=== PATIENT | female | born 1985 | race American Indian/Alaskan Native ===

== ENCOUNTER 2016-08-14 12:00 | Emergency (ER) | payer SELFPAY ==
[2016-08-14 12:44] VITALS: BP 130/82
--- NOTE | 2016-08-14 14:08 | Emergency Department Report ---
ED ENT HPI - General Chief complaint: Dental/Oral Stated complaint: RT SIDE FACIAL PAIN /SEVERE TOOTH PAIN Time Seen by Provider: 08/14/16 13:37 Source: patient Mode of arrival: Ambulatory Limitations: No Limitations - History of Present Illness Initial comments: PT c/o R lower toothache since eating yesterday. PT denies any dental injury. PT states it has been 10 years since she has seen a dentist. PT states she is allergic to Ultram but she has taken Tylenol #3 and Lortab without a problem. PT states she took Motrin this morning for the pain but her pain has not decreased. pt rates her pain 12/24. MD complaint: tooth pain -: Gradual Location: tooth # (32) 1 - severe pain Severity: severe Severity scale (0 -10): 10 Quality: sharp Consistency: constant Improves with: none Worsens with: eating Context- Dental: history of dental caries, poor dental care Associated Symptoms: denies: fever, pain with swallowing, sore throat - Related Data Previous Rx's Medication Instructions Recorded Last Taken Type Acetaminophen/Codeine [Tylenol #3] 1 tab PO Q6H PRN #12 tab 08/14/16 Unknown Rx Amoxicillin 500 mg PO BID #20 capsule 08/14/16 Unknown Rx Allergies Allergy/AdvReac Type Severity Reaction Status Date / Time tramadol Allergy Angioedema Verified 02/06/15 17:40 ED Dental HPI - General Chief complaint: Dental/Oral Stated complaint: RT SIDE FACIAL PAIN /SEVERE TOOTH PAIN Time Seen by Provider: 08/14/16 13:37 Source: patient Mode of arrival: Ambulatory Limitations: No Limitations - Related Data Previous Rx's Medication Instructions Recorded Last Taken Type Acetaminophen/Codeine [Tylenol #3] 1 tab PO Q6H PRN #12 tab 08/14/16 Unknown Rx Amoxicillin 500 mg PO BID #20 capsule 08/14/16 Unknown Rx Allergies Allergy/AdvReac Type Severity Reaction Status Date / Time tramadol Allergy Angioedema Verified 02/06/15 17:40 ED Review of Systems ROS: Stated complaint: RT SIDE FACIAL PAIN /SEVERE TOOTH PAIN Other details as noted in HPI Comment: All other systems reviewed and negative Constitutional: denies: chills, fever ENT: ear pain, dental pain. denies: throat pain, congestion Gastrointestinal: denies: abdominal pain, nausea, vomiting Neurological: headache (only the R side of her head ) ED Past Medical Hx - Past Medical History Previous Medical History?: No Additional medical history: Bronchitis - Surgical History Past Surgical History?: Yes Additional Surgical History: Abscess removal Right neck - Social History Smoking Status: Current Every Day Smoker Substance Use Type: None - Medications Home Medications: Home Medications Medication Instructions Recorded Confirmed Last Taken Type Acetaminophen/Codeine [Tylenol #3] 1 tab PO Q6H PRN #12 tab 08/14/16 Unknown Rx Amoxicillin 500 mg PO BID #20 capsule 08/14/16 Unknown Rx ED Physical Exam - General Limitations: No Limitations General appearance: alert, in no apparent distress - Head Head exam: Present: atraumatic, normocephalic, normal inspection - Eye Eye exam: Present: normal appearance, PERRL, EOMI. Absent: conjunctival injection - ENT ENT exam: Present: normal orophraynx, mucous membranes moist, TM's normal bilaterally, normal external ear exam - Expanded ENT Exam Expanded Mouth exam: Absent: drooling, trismus Teeth exam: Present: dental caries, dental tenderness # (32 and 31) Throat exam: Positive: normal inspection. Negative: tonsillar erythema, tonsillomegaly, tonsillar exudate - Neck Neck exam: Present: normal inspection, tenderness, full ROM, lymphadenopathy - Respiratory Respiratory exam: Present: normal lung sounds bilaterally. Absent: respiratory distress - Cardiovascular Cardiovascular Exam: Present: regular rate, normal rhythm - Extremities Exam Extremities exam: Present: normal inspection, full ROM - Back Exam Back exam: Present: normal inspection, full ROM - Neurological Exam Neurological exam: Present: alert, oriented X3 - Psychiatric Psychiatric exam: Present: normal affect, normal mood - Skin Skin exam: Present: warm, dry, intact, normal color ED Course Vital Signs 08/14/16 08/14/16 12:40 14:23 Temperature 98.3 F Pulse Rate 63 Respiratory 18 16 Rate Blood Pressure 130/82 O2 Sat by Pulse 100 Oximetry - Reevaluation(s) Reevaluation #1: 08/14/16 14:09 PT aware of dx and need for close dental follow up. PT verbalizes understanding. - Pulse Oximetry Interpretation Digit-Finger Initial Pulse Oximetry Readin Actions Taken: none ED Medical Decision Making - Differential Diagnosis toothache, dental abscess Critical care attestation.: If time is entered above; I have spent that time in minutes in the direct care of this critically ill patient, excluding procedure time. ED Disposition Clinical Impression: Toothache, Dental decay Disposition: DISCHARGED TO HOME OR SELFCARE Is pt being admited?: No Does the pt Need Aspirin: No Condition: Stable Instructions: Dental Abscess (ED), Dental Caries (ED), Toothache (ED) Additional Instructions: No driving or ETOH after taking Tylenol #3 Follow up with Dentist next week Prescriptions: Acetaminophen/Codeine [Tylenol #3] 1 tab PO Q6H PRN #12 tab PRN Reason: Pain , Severe (7-10) Amoxicillin 500 mg PO BID #20 capsule Referrals: PRIMARY CARE, [Primary Care Provider] - 3-5 Days CHRISTY CANO MD [Staff Physician] - 3-5 Days [facility] [Outside] - 3-5 Days [facility] [Outside] - 3-5 Days [facility] [Outside] - 3-5 Days Forms: Work/School Release Form(ED) Time of Disposition: 14:12
[2016-08-14] MEDS ORDERED: TRIMOX PO ONE (14:10)
[2016-08-14] MEDS ORDERED: NORCO 5/325 PO ONE (14:10)
== END 2016-08-14 14:23 | disposition home or self-care (01) ==
LOC: ED 12:00
DX: K02.9 Dental caries, unspecified (principal); K08.89 Other specified disorders of teeth and supporting structures; Z88.6 Allergy status to analgesic agent
CPT/HCPCS: 99282

== ENCOUNTER 2017-08-04 04:10 | Emergency (ER) | payer SELFPAY ==
[2017-08-04 04:23] VITALS: BP 120/78
[2017-08-04] MEDS ORDERED: TYLENOL #3 ONE (05:29)
[2017-08-04] MEDS ORDERED: TYLENOL #3 PO ONE (05:34)
[2017-08-04] MEDS ORDERED: CLEOCIN IM ONE (07:39)
--- NOTE | 2017-08-04 07:39 | Emergency Department Report ---
ED General Adult HPI - General Chief complaint: Dental/Oral Stated complaint: TOOTHACHE Time Seen by Provider: 08/04/17 07:13 Source: patient Mode of arrival: Ambulatory Limitations: No Limitations - History of Present Illness Initial comments: Patient reported that she has to take to left lower back tooth. She also reported that she woke up with facial swelling that started yesterday. She reports ear pain to the left ear and pain radiated from her left facial area to left side of head. She says she took Tylenol around 3:30 AM this morning but did not relieve her pain. Last menstrual period was 07/24/2017. Denies any sore throat or drooling. Denies any nasal congestion or runny nose. Pain is worse with talking and eating and remains the same without any alleviating factors. MD Complaint: toothache and facial swelling Onset/Timin -: days(s) Location: face (left face) Radiation: other (left ear and left side of head) Severity scale (0 -10): 10 Consistency: constant Improves with: none Worsens with: eating, other (talking) Associated Symptoms: denies: confusion, chest pain, cough, diaphoresis, fever/ chills, headaches, loss of appetite, malaise, nausea/vomiting, rash, seizure, shortness of breath, syncope, weakness Treatments Prior to Arrival: other (Tylenol) - Related Data Previous Rx's Medication Instructions Recorded Last Taken Type Acetaminophen/Codeine [Tylenol 1 tab PO Q6H PRN #12 tab 08/04/17 Unknown Rx /Codeine # 3 tab] Ibuprofen [Motrin] 600 mg PO Q8H PRN #21 tablet 08/04/17 Unknown Rx Penicillin V Potassium 500 mg PO Q8H 10 Days #30 tablet 08/04/17 Unknown Rx Allergies Allergy/AdvReac Type Severity Reaction Status Date / Time tramadol Allergy Angioedema Verified 02/06/15 17:40 ED Review of Systems ROS: Stated complaint: TOOTHACHE Other details as noted in HPI Constitutional: denies: chills, fever Eyes: denies: eye discharge ENT: ear pain, dental pain, other (facial swelling). denies: throat pain, congestion Respiratory: denies: cough, shortness of breath, SOB with exertion, SOB at rest , stridor, wheezing Cardiovascular: denies: chest pain, palpitations Endocrine: no symptoms reported Gastrointestinal: denies: nausea, vomiting Genitourinary: denies: urgency, dysuria, discharge Musculoskeletal: denies: back pain, joint swelling, arthralgia, myalgia Skin: denies: rash, lesions Neurological: headache. denies: weakness, numbness, paresthesias, abnormal gait , vertigo ED Past Medical Hx - Past Medical History Previous Medical History?: Yes Additional medical history: Bronchitis - Surgical History Past Surgical History?: Yes Additional Surgical History: Abscess removal Right neck - Family History Family history: hypertension - Social History Smoking Status: Current Every Day Smoker Substance Use Type: None Other Social History: Single lives with family - Medications Home Medications: Home Medications Medication Instructions Recorded Confirmed Last Taken Type Acetaminophen/Codeine [Tylenol 1 tab PO Q6H PRN #12 tab 08/04/17 Unknown Rx /Codeine # 3 tab] Ibuprofen [Motrin] 600 mg PO Q8H PRN #21 tablet 08/04/17 Unknown Rx Penicillin V Potassium 500 mg PO Q8H 10 Days #30 tablet 08/04/17 Unknown Rx ED Physical Exam - General Limitations: No Limitations General appearance: alert, in no apparent distress - Head Head exam: Present: atraumatic, normocephalic, normal inspection, other (normal exam) - Eye Eye exam: Present: normal appearance, PERRL, EOMI. Absent: scleral icterus, conjunctival injection, periorbital swelling, periorbital tenderness Pupils: Present: normal accommodation - ENT ENT exam: Present: normal orophraynx, mucous membranes moist, TM's normal bilaterally, normal external ear exam, other (nasal mucosa normal exam. No frontal or meds or sinus tenderness.). Absent: normal exam - Expanded ENT Exam Expanded Ear exam: Present: normal external inspection Mouth exam: Present: normal external inspection, tongue normal. Absent: drooling, trismus, muffled voice, tongue elevation, laceration Teeth exam: Present: dental caries (bilateral upper and lower dental caries), dental tenderness # (19, 18 and 17), gingival enlargement (with mild gingivitis) , other (patient with cellulitic area around tooth #17, 18 and 19 with mild induration without any fluctuance. Positive facial swelling, left. No erythema noted to the facial area. Patient able to open and close her mouth without any difficulties without any bony abnormalities.). Absent: fractured tooth # 1 - Dental Tenderness (cellulitic area with mild induration and nonfluctuant), Other (dental caries) Throat exam: Positive: normal inspection - Neck Neck exam: Present: normal inspection - Respiratory Respiratory exam: Present: normal lung sounds bilaterally. Absent: respiratory distress, chest wall tenderness - Cardiovascular Cardiovascular Exam: Present: regular rate, normal rhythm, normal heart sounds. Absent: systolic murmur, diastolic murmur - GI/Abdominal GI/Abdominal exam: Present: soft, normal bowel sounds. Absent: tenderness - Extremities Exam Extremities exam: Present: normal inspection, full ROM, other (no clubbing, cyanosis or edema. +2 pulses all extremities). Absent: tenderness, pedal edema - Back Exam Back exam: Present: normal inspection, full ROM - Neurological Exam Neurological exam: Present: alert, oriented X3, normal gait, reflexes normal, other (no focal neurological deficit). Absent: motor sensory deficit - Psychiatric Psychiatric exam: Present: normal affect, normal mood - Skin Skin exam: Present: warm, dry, intact, normal color. Absent: rash ED Course Vital Signs 08/04/17 08/04/17 04:12 04:20 Temperature 98.6 F 98.6 F Pulse Rate 78 65 Respiratory 18 18 Rate Blood Pressure 120/78 120/78 O2 Sat by Pulse 97 97 Oximetry - Reevaluation(s) Reevaluation #1: 08/04/17 08:37 Patient received Tylenol with codeine No. 3 one tablet by mouth for toothache which relieved her pain. She is also given clindamycin 600 mg IM for oral cellulitis. She had no adverse reaction. Patient said that his pain is down to 3/10. No further earache or headache. ED Medical Decision Making - Medical Decision Making ED course: 1: Oral cellulitis/abscess-indurated area with nonfluctuant. Patient to follow up with dentist which I'll give her referral for 2: Interval enlargement and gingivitis 3: Dental caries -Clindamycin 60 mg IM for oral cellulitis and abscess/gingivitis/dental caries. -She will be discharged home on antibiotic -Floss twice daily and gargle with Listerine 3 times a day to prevent worsening gum disease 4: Toothache -She was given Tylenol No. 3 one tablet emergency room for pain which relieved her pain. -Patient will be discharged home on Tylenol No. 3 and Motrin to manage toothache Patient and given referral to [facility] dental clinic and I instructed her that she needs to call today and let them know that she was treated in emergency room for dental abscess/cellulitis and was started on antibiotic and pain medication and she needs to schedule an appointment for follow-up visit for evaluation and treatment. I discussed diagnosis, treatment plan and follow- up the patient and she voiced understanding. Patient discharged home from ED in stable condition with prescription for Motrin, penicillin VK and Tylenol 3. Critical care attestation.: If time is entered above; I have spent that time in minutes in the direct care of this critically ill patient, excluding procedure time. ED Disposition Clinical Impression: Oral cellulitis, Dental caries, Tooth ache, Gingivitis Disposition: TO HOME OR SELFCARE Is pt being admited?: No Does the pt Need Aspirin: No Condition: Stable Instructions: Gingivitis (ED), Dental Caries (ED), Toothache (ED), Dental Abscess (ED) Additional Instructions: Please follow up at [facility] dental clinic as instructed. Call this morning to schedule an appointment Take antibiotic as prescribed Please gargle with Listerine mouthwash 3 times a day. Loss as this will help with gum disease Take Motrin for pain and if you have severe pain he can take Tylenol No. [address] operate heavy machinery while taking Tylenol No. 3 at this medication causes drowsiness Gum disease can lead to widespread infection and affect your heart and valve A heart stable need to follow up with a dentist as instructed. Prescriptions: Acetaminophen/Codeine [Tylenol /Codeine # 3 tab] 1 tab PO Q6H PRN #12 tab PRN Reason: severe pain Ibuprofen [Motrin] 600 mg PO Q8H PRN #21 tablet PRN Reason: moderate pain Penicillin V Potassium 500 mg PO Q8H 10 Days #30 tablet Referrals: PRIMARY CARE, [Primary Care Provider] - 2-3 Days [facility] [Outside] - 2-3 Days [facility] [Outside] - 2-3 Days Forms: Work/School Release Form(ED)
== END 2017-08-04 08:58 | disposition home or self-care (01) ==
LOC: ED 04:10
DX: K02.9 Dental caries, unspecified (principal); K05.10 Chronic gingivitis, plaque induced; K12.2 Cellulitis and abscess of mouth; F17.200 Nicotine dependence, unspecified, uncomplicated
CPT/HCPCS: 96372; 99282

== ENCOUNTER 2018-06-12 20:43 | Emergency (ER) | payer SELFPAY ==
[2018-06-13] MEDS ORDERED: TYLENOL #3 PO ONE (01:21)
[2018-06-13] MEDS ORDERED: TRIMOX PO ONE (01:21)
[2018-06-13 01:50] VITALS: BP 115/89
--- NOTE | 2018-06-13 02:02 | Emergency Department Report ---
ED ENT HPI - General Chief complaint: Dental/Oral Stated complaint: TOOTHACHE/L SIDE JAW SWELLING Time Seen by Provider: 06/13/18 01:18 Source: patient Mode of arrival: Ambulatory Limitations: No Limitations - History of Present Illness Initial comments: Patient alert female who presents for dental pain 2 weeks as a chronic problem and recurring sensation she remained today and noted some period came out on exam which initiated this toothache pain 7/10 exacerbated by hot and cold stimuli pain is relieved by nothing tried patient request referral to dentist complaint: tooth pain Onset/Timin -: week(s) Location: tooth # (18) Severity: moderate Severity scale (0 -10): 5 Quality: aching Consistency: constant Improves with: none Worsens with: other (hot and cold stimuli ) Context- Dental: history of dental caries, poor dental care Associated Symptoms: toothache - Related Data Previous Rx's Medication Instructions Recorded Last Taken Type Acetaminophen/Codeine [Tylenol 1 tab PO Q6H PRN #12 tab 08/04/17 Unknown Rx /Codeine # 3 tab] Ibuprofen [Motrin] 600 mg PO Q8H PRN #21 tablet 08/04/17 Unknown Rx Penicillin V Potassium 500 mg PO Q8H 10 Days #30 tablet 08/04/17 Unknown Rx Acetaminophen/Codeine [Tylenol 1 tab PO Q6H PRN #12 tab 06/13/18 Unknown Rx /Codeine # 3 tab] Amoxicillin 500 mg PO TID 10 Days #30 capsule 06/13/18 Unknown Rx Chlorhexidine Mouthwash [Peridex] 15 ml MM BID #1 bottle 06/13/18 Unknown Rx Allergies Allergy/AdvReac Type Severity Reaction Status Date / Time tramadol Allergy Angioedema Verified 02/06/15 17:40 ED Dental HPI - General Chief complaint: Dental/Oral Stated complaint: TOOTHACHE/L SIDE JAW SWELLING Time Seen by Provider: 06/13/18 01:18 Source: patient Mode of arrival: Ambulatory Limitations: No Limitations - History of Present Illness complaint: tooth pain Onset/Timin -: week(s) Severity: moderate Quality: aching Consistency: constant Improves with: none Worsens with: none Context- Dental: history of dental caries, poor dental care - Related Data Previous Rx's Medication Instructions Recorded Last Taken Type Acetaminophen/Codeine [Tylenol 1 tab PO Q6H PRN #12 tab 08/04/17 Unknown Rx /Codeine # 3 tab] Ibuprofen [Motrin] 600 mg PO Q8H PRN #21 tablet 08/04/17 Unknown Rx Penicillin V Potassium 500 mg PO Q8H 10 Days #30 tablet 08/04/17 Unknown Rx Acetaminophen/Codeine [Tylenol 1 tab PO Q6H PRN #12 tab 06/13/18 Unknown Rx /Codeine # 3 tab] Amoxicillin 500 mg PO TID 10 Days #30 capsule 06/13/18 Unknown Rx Chlorhexidine Mouthwash [Peridex] 15 ml MM BID #1 bottle 06/13/18 Unknown Rx Allergies Allergy/AdvReac Type Severity Reaction Status Date / Time tramadol Allergy Angioedema Verified 02/06/15 17:40 ED Review of Systems ROS: Stated complaint: TOOTHACHE/L SIDE JAW SWELLING Other details as noted in HPI Constitutional: denies: chills, fever Eyes: denies: eye pain, eye discharge, vision change ENT: dental pain. denies: ear pain, throat pain, congestion Respiratory: denies: cough, shortness of breath, wheezing Cardiovascular: denies: chest pain, palpitations Endocrine: no symptoms reported Gastrointestinal: denies: abdominal pain, nausea, diarrhea Genitourinary: denies: urgency, dysuria, discharge Musculoskeletal: denies: back pain, joint swelling, arthralgia Skin: denies: rash, lesions Neurological: denies: headache, weakness, paresthesias Psychiatric: denies: anxiety, depression Hematological/Lymphatic: denies: easy bleeding, easy bruising ED Past Medical Hx - Past Medical History Previous Medical History?: Yes Additional medical history: Bronchitis - Surgical History Past Surgical History?: Yes Additional Surgical History: Abscess removal Right neck - Social History Smoking Status: Current Every Day Smoker Substance Use Type: None - Medications Home Medications: Home Medications Medication Instructions Recorded Confirmed Last Taken Type Acetaminophen/Codeine [Tylenol 1 tab PO Q6H PRN #12 tab 08/04/17 Unknown Rx /Codeine # 3 tab] Ibuprofen [Motrin] 600 mg PO Q8H PRN #21 tablet 08/04/17 Unknown Rx Penicillin V Potassium 500 mg PO Q8H 10 Days #30 tablet 08/04/17 Unknown Rx Acetaminophen/Codeine [Tylenol 1 tab PO Q6H PRN #12 tab 06/13/18 Unknown Rx /Codeine # 3 tab] Amoxicillin 500 mg PO TID 10 Days #30 capsule 06/13/18 Unknown Rx Chlorhexidine Mouthwash [Peridex] 15 ml MM BID #1 bottle 06/13/18 Unknown Rx ED Physical Exam - General Limitations: No Limitations General appearance: alert, in no apparent distress - Head Head exam: Present: atraumatic, normocephalic - Eye Eye exam: Present: normal appearance - ENT ENT exam: Present: mucous membranes moist, TM's normal bilaterally, normal external ear exam - Expanded ENT Exam Expanded Ear exam: Present: normal external inspection Mouth exam: Present: normal external inspection Teeth exam: Present: dental caries, dental tenderness # (18) Throat exam: Positive: normal inspection. Negative: tonsillar erythema, tonsillomegaly, tonsillar exudate, R peritonsillar mass, L peritonsillar mass - Neck Neck exam: Present: normal inspection, full ROM. Absent: tenderness, meningismus, lymphadenopathy, thyromegaly - Respiratory Respiratory exam: Present: normal lung sounds bilaterally. Absent: respiratory distress, chest wall tenderness - Cardiovascular Cardiovascular Exam: Present: regular rate, normal rhythm. Absent: systolic murmur, diastolic murmur, rubs, gallop - GI/Abdominal GI/Abdominal exam: Present: soft, normal bowel sounds - Rectal Rectal exam: Present: deferred - Extremities Exam Extremities exam: Present: normal inspection - Back Exam Back exam: Present: normal inspection, full ROM. Absent: tenderness - Neurological Exam Neurological exam: Present: alert, oriented X3, CN II-XII intact, normal gait - Psychiatric Psychiatric exam: Present: normal affect - Skin Skin exam: Present: warm, dry, intact, normal color. Absent: rash ED Course Vital Signs 06/12/18 06/12/18 06/13/18 20:52 22:11 01:48 Temperature 98.0 F 98 F Pulse Rate 83 82 Respiratory 16 16 16 Rate Blood Pressure 106/65 106/65 Blood Pressure [Left] O2 Sat by Pulse 97 100 Oximetry 06/13/18 01:49 Temperature 98.8 F Pulse Rate 60 Respiratory 16 Rate Blood Pressure Blood Pressure 115/89 [Left] O2 Sat by Pulse 98 Oximetry ED Medical Decision Making - Medical Decision Making This is infected dental caries plan Ultram, amoxicillin, peridex mouth rinse follow up with dentist tomorrow patient verbalized agreement and understanding of discharge plan DC'd home in stable condition at this time Critical care attestation.: If time is entered above; I have spent that time in minutes in the direct care of this critically ill patient, excluding procedure time. ED Disposition Clinical Impression: Infected dental carries Disposition: DC-01 TO HOME OR SELFCARE Is pt being admited?: No Does the pt Need Aspirin: No Condition: Stable Instructions: Dental Caries (ED) Prescriptions: Amoxicillin 500 mg PO TID 10 Days #30 capsule Chlorhexidine Mouthwash [Peridex] 15 ml MM BID #1 bottle Acetaminophen/Codeine [Tylenol /Codeine # 3 tab] 1 tab PO Q6H PRN #12 tab PRN Reason: pain Referrals: [facility] [Outside] - 3-5 Days Forms: Work/School Release Form(ED) Time of Disposition: 02:11
== END 2018-06-13 02:15 | disposition home or self-care (01) ==
LOC: ED 20:43
DX: K02.9 Dental caries, unspecified (principal); K04.7 Periapical abscess without sinus; F17.200 Nicotine dependence, unspecified, uncomplicated
CPT/HCPCS: 99282

== ENCOUNTER 2018-11-06 10:38 | Emergency (ER) | payer SELFPAY ==
[2018-11-06 10:46] VITALS: BP 117/72
[2018-11-06] MEDS ORDERED: TESSALON PERLES PO ONE (11:32)
[2018-11-06] MEDS ORDERED: IBUPROFEN PO ONE (11:32)
[2018-11-06] MEDS ORDERED: DELTASONE PO ONE (11:33)
[2018-11-06] MEDS ORDERED: CLARITIN PO ONE (11:33)
--- NOTE | 2018-11-06 11:39 | Emergency Department Report ---
- General Chief Complaint: Sore Throat Stated Complaint: FLU LIKE SYMPTOMS Time Seen by Provider: 11/06/18 11:07 Source: patient Mode of arrival: Ambulatory Limitations: No Limitations - History of Present Illness MD Complaint: cough, sore throat, rhinorrhea, nasal congestion, other (wheezing) -: Gradual, days(s) Severity: mild Severity scale (0 -10): 1 Consistency: intermittent Improves With: nothing Worsens With: nothing Context: sick contacts Associated Symptoms: myalgias, rhinorrhea, nasal congestion, sore throat, cough. denies: fever, chills, diaphoresis, stiff neck, chest pain, abdominal pain, nausea, vomiting, diarrhea, dysuria, rash, confusion, right sweats, weight loss, epistaxis, hoarseness, ear pain - Related Data Previous Rx's Medication Instructions Recorded Last Taken Type Acetaminophen/Codeine [Tylenol 1 tab PO Q6H PRN #12 tab 08/04/17 Unknown Rx /Codeine # 3 tab] Ibuprofen [Motrin] 600 mg PO Q8H PRN #21 tablet 08/04/17 Unknown Rx Penicillin V Potassium 500 mg PO Q8H 10 Days #30 tablet 08/04/17 Unknown Rx Acetaminophen/Codeine [Tylenol 1 tab PO Q6H PRN #12 tab 06/13/18 Unknown Rx /Codeine # 3 tab] Amoxicillin 500 mg PO TID 10 Days #30 capsule 06/13/18 Unknown Rx Chlorhexidine Mouthwash [Peridex] 15 ml MM BID #1 bottle 06/13/18 Unknown Rx Albuterol Sulfate [Proair 90 mcg IH Q4HR PRN #1 aer.pow.ba 11/06/18 Unknown Rx Respiclick] Benzonatate [Tessalon Perles] 100 mg PO Q8HR PRN #12 capsule 11/06/18 Unknown Rx Ibuprofen [Motrin 400 MG tab] 400 mg PO Q6H PRN #24 tablet 11/06/18 Unknown Rx Loratadine [Claritin] 10 mg PO DAILY #14 tablet 11/06/18 Unknown Rx predniSONE [Deltasone] 20 mg PO QDAY #3 tab 11/06/18 Unknown Rx Allergies Allergy/AdvReac Type Severity Reaction Status Date / Time tramadol Allergy Angioedema Verified 02/06/15 17:40 ED Review of Systems ROS: Stated complaint: FLU LIKE SYMPTOMS Other details as noted in HPI Other: GENERAL: No weight change, fatigue, fever, chills, or night sweats SKIN: No changes in skin or hair, no itching, no rashes, no jaundice HEAD: No trauma, headache, or visual changes EYES: No blurriness, tearing, itching, acute visual loss, conjunctival discoloration, or scleral icterus EARS: No hearing loss, tinnitus, vertigo, or earache NOSE: rhinorrhea, stuffiness, No. sneezing, itching, or epistaxis MOUTH: No bleeding gums, hoarseness, sore throat, or swelling CARDIAC: No new murmur, chest pain, palpitations, dyspnea on exertion, orthopnea, PND, or edema RESPIRATORY: Wheezing, cough. No sputum production, hemoptysis GI: No change in appetite, nausea, vomiting, dysphagia, diarrhea, constipation, hematemesis, melena, hematochezia, or abdominal pain URINARY: No frequency, urgency, polyuria, dysuria, hematuria, or incontinence MUSCULOSKELETAL: myalgias. No muscle weakness, joint stiffness, decrease in r tino of motion, redness, swelling NEUROLOGIC: No headache, loss of sensation, numbness, tingling, tremors, weakness, paralysis, seizures HEMATOLOGIC: No anemia, easy bruising, bleeding, petechiae, or purpura ENDOCRINE: No hot or cold intolerance, sweating, polyuria, polydipsia or, polyphagia no thyroid problems PSYCHIATRIC: No change in mood, no anxiety, no depression ED Past Medical Hx - Past Medical History Previous Medical History?: No Additional medical history: Bronchitis - Surgical History Past Surgical History?: Yes Additional Surgical History: Abscess removal Right neck - Social History Smoking Status: Current Every Day Smoker Substance Use Type: Alcohol - Medications Home Medications: Home Medications Medication Instructions Recorded Confirmed Last Taken Type Acetaminophen/Codeine [Tylenol 1 tab PO Q6H PRN #12 tab 08/04/17 Unknown Rx /Codeine # 3 tab] Ibuprofen [Motrin] 600 mg PO Q8H PRN #21 tablet 08/04/17 Unknown Rx Penicillin V Potassium 500 mg PO Q8H 10 Days #30 tablet 08/04/17 Unknown Rx Acetaminophen/Codeine [Tylenol 1 tab PO Q6H PRN #12 tab 06/13/18 Unknown Rx /Codeine # 3 tab] Amoxicillin 500 mg PO TID 10 Days #30 capsule 06/13/18 Unknown Rx Chlorhexidine Mouthwash [Peridex] 15 ml MM BID #1 bottle 06/13/18 Unknown Rx Albuterol Sulfate [Proair 90 mcg IH Q4HR PRN #1 aer.pow.ba 11/06/18 Unknown Rx Respiclick] Benzonatate [Tessalon Perles] 100 mg PO Q8HR PRN #12 capsule 11/06/18 Unknown Rx Ibuprofen [Motrin 400 MG tab] 400 mg PO Q6H PRN #24 tablet 11/06/18 Unknown Rx Loratadine [Claritin] 10 mg PO DAILY #14 tablet 11/06/18 Unknown Rx predniSONE [Deltasone] 20 mg PO QDAY #3 tab 11/06/18 Unknown Rx ED Physical Exam - General Limitations: No Limitations - Other Other exam information: GENERAL: Patient in no acute distress HEAD: Normocephalic, atraumatic EYES: PERRLA, EOM intact, no scleral icterus, no conjunctival hemorrhage, visual [place] and acuity wnl NOSE: No tenderness, discharge, sinus tenderness MOUTH: No erythema, bleeding, exudate HEART: Regular rate and rhythm, no murmur, S1-S2 are auscultated, pulses are symmetric LUNGS: No respiratory distress. Bilateral breath sounds, No tachypnea, No retractions, No wheezing, rales, rhonchi ABDOMEN: Normal bowel sounds, abdomen soft, no tenderness, no rebound, no guarding, no distention, no masses, no CVA tenderness MUSCULOSKELETAL: Normal joint range of motion, no redness, no swelling, no tenderness NEUROLOGIC: GCS 15, Alert and Oriented x3, Cranial nerves intact, normal sensation, normal strength, no cerebellar deficit, NIHSS 0 PSYCHIATRIC: No homicidal or suicidal ideation, no anxiety, no depression, no hallucinations SKIN: Skin is warm and dry, no wounds, no rashes ED Course Vital Signs 11/06/18 11/06/18 10:45 11:58 Temperature 97.9 F Pulse Rate 72 Respiratory 16 16 Rate Blood Pressure 117/72 O2 Sat by Pulse 97 Oximetry ED Medical Decision Making - Medical Decision Making Patient comfortable. Discussed the importance of quitting smoking. Plan discharge with outpatient follow up. Return if any worsening. Critical care attestation.: If time is entered above; I have spent that time in minutes in the direct care of this critically ill patient, excluding procedure time. ED Disposition Clinical Impression: Bronchitis Disposition: DC-01 TO HOME OR SELFCARE Is pt being admited?: No Condition: Stable Instructions: Acute Bronchitis (ED) Prescriptions: Loratadine [Claritin] 10 mg PO DAILY #14 tablet predniSONE [Deltasone] 20 mg PO QDAY #3 tab Ibuprofen [Motrin 400 MG tab] 400 mg PO Q6H PRN #24 tablet PRN Reason: Pain, Mild (1-3) Albuterol Sulfate [Proair Respiclick] 90 mcg IH Q4HR PRN #1 aer.pow.ba PRN Reason: Wheezing Benzonatate [Tessalon Perles] 100 mg PO Q8HR PRN #12 capsule PRN Reason: Cough Referrals: PRIMARY CARE,MD [Primary Care Provider] - 2-3 Days Forms: Work/School Release Form(ED) Time of Disposition: 11:34
== END 2018-11-06 12:00 | disposition home or self-care (01) ==
LOC: ED 10:38
DX: J40 Bronchitis, not specified as acute or chronic (principal); F17.200 Nicotine dependence, unspecified, uncomplicated; Z88.6 Allergy status to analgesic agent; Z79.899 Other long term (current) drug therapy
CPT/HCPCS: 99282; J7512

== ENCOUNTER 2019-02-20 08:53 | Emergency (ER) | payer SELFPAY ==
[2019-02-20 09:01] VITALS: BP 131/94
--- NOTE | 2019-02-20 09:05 | Emergency Department Report ---
ED ENT HPI - General Stated complaint: LT JAW PAIN Time Seen by Provider: 02/20/19 08:57 - History of Present Illness Initial comments: 33 y/o female comes in for left tooth pain times 2 days. Has been taking IB. No fever. allergy to tramadol. Week ago chipped her tooth 1 week ago. complaint: tooth pain Onset/Timin -: days(s) Location: tooth # Severity scale (0 -10): 10 Quality: stabbing, aching Consistency: constant Improves with: none Worsens with: eating Associated Symptoms: gum swelling, toothache. denies: fever, cough - Related Data Previous Rx's Medication Instructions Recorded Last Taken Type Acetaminophen/Codeine [Tylenol 1 tab PO Q6H PRN #12 tab 08/04/17 Unknown Rx /Codeine # 3 tab] Ibuprofen [Motrin] 600 mg PO Q8H PRN #21 tablet 08/04/17 Unknown Rx Penicillin V Potassium 500 mg PO Q8H 10 Days #30 tablet 08/04/17 Unknown Rx Acetaminophen/Codeine [Tylenol 1 tab PO Q6H PRN #12 tab 06/13/18 Unknown Rx /Codeine # 3 tab] Amoxicillin 500 mg PO TID 10 Days #30 capsule 06/13/18 Unknown Rx Chlorhexidine Mouthwash [Peridex] 15 ml MM BID #1 bottle 06/13/18 Unknown Rx Albuterol Sulfate [Proair 90 mcg IH Q4HR PRN #1 aer.pow.ba 11/06/18 Unknown Rx Respiclick] Benzonatate [Tessalon Perles] 100 mg PO Q8HR PRN #12 capsule 11/06/18 Unknown Rx Ibuprofen [Motrin 400 MG tab] 400 mg PO Q6H PRN #24 tablet 11/06/18 Unknown Rx Loratadine [Claritin] 10 mg PO DAILY #14 tablet 11/06/18 Unknown Rx predniSONE [Deltasone] 20 mg PO QDAY #3 tab 11/06/18 Unknown Rx Clindamycin [Clindamycin CAP] 300 mg PO Q8H #30 cap 02/20/19 Unknown Rx Allergies Allergy/AdvReac Type Severity Reaction Status Date / Time tramadol Allergy Angioedema Verified 02/06/15 17:40 ED Dental HPI - General Stated complaint: LT JAW PAIN Time Seen by Provider: 02/20/19 08:57 - Related Data Previous Rx's Medication Instructions Recorded Last Taken Type Acetaminophen/Codeine [Tylenol 1 tab PO Q6H PRN #12 tab 08/04/17 Unknown Rx /Codeine # 3 tab] Ibuprofen [Motrin] 600 mg PO Q8H PRN #21 tablet 08/04/17 Unknown Rx Penicillin V Potassium 500 mg PO Q8H 10 Days #30 tablet 08/04/17 Unknown Rx Acetaminophen/Codeine [Tylenol 1 tab PO Q6H PRN #12 tab 06/13/18 Unknown Rx /Codeine # 3 tab] Amoxicillin 500 mg PO TID 10 Days #30 capsule 06/13/18 Unknown Rx Chlorhexidine Mouthwash [Peridex] 15 ml MM BID #1 bottle 06/13/18 Unknown Rx Albuterol Sulfate [Proair 90 mcg IH Q4HR PRN #1 aer.pow.ba 11/06/18 Unknown Rx Respiclick] Benzonatate [Tessalon Perles] 100 mg PO Q8HR PRN #12 capsule 11/06/18 Unknown Rx Ibuprofen [Motrin 400 MG tab] 400 mg PO Q6H PRN #24 tablet 11/06/18 Unknown Rx Loratadine [Claritin] 10 mg PO DAILY #14 tablet 11/06/18 Unknown Rx predniSONE [Deltasone] 20 mg PO QDAY #3 tab 11/06/18 Unknown Rx Clindamycin [Clindamycin CAP] 300 mg PO Q8H #30 cap 02/20/19 Unknown Rx Allergies Allergy/AdvReac Type Severity Reaction Status Date / Time tramadol Allergy Angioedema Verified 02/06/15 17:40 ED Review of Systems ROS: Stated complaint: LT JAW PAIN Other details as noted in HPI Comment: All other systems reviewed and negative ED Past Medical Hx - Past Medical History Additional medical history: Bronchitis - Surgical History Additional Surgical History: Abscess removal Right neck - Social History Smoking Status: Current Every Day Smoker Substance Use Type: Alcohol - Medications Home Medications: Home Medications Medication Instructions Recorded Confirmed Last Taken Type Acetaminophen/Codeine [Tylenol 1 tab PO Q6H PRN #12 tab 08/04/17 Unknown Rx /Codeine # 3 tab] Ibuprofen [Motrin] 600 mg PO Q8H PRN #21 tablet 08/04/17 Unknown Rx Penicillin V Potassium 500 mg PO Q8H 10 Days #30 tablet 08/04/17 Unknown Rx Acetaminophen/Codeine [Tylenol 1 tab PO Q6H PRN #12 tab 06/13/18 Unknown Rx /Codeine # 3 tab] Amoxicillin 500 mg PO TID 10 Days #30 capsule 06/13/18 Unknown Rx Chlorhexidine Mouthwash [Peridex] 15 ml MM BID #1 bottle 06/13/18 Unknown Rx Albuterol Sulfate [Proair 90 mcg IH Q4HR PRN #1 aer.pow.ba 11/06/18 Unknown Rx Respiclick] Benzonatate [Tessalon Perles] 100 mg PO Q8HR PRN #12 capsule 11/06/18 Unknown Rx Ibuprofen [Motrin 400 MG tab] 400 mg PO Q6H PRN #24 tablet 11/06/18 Unknown Rx Loratadine [Claritin] 10 mg PO DAILY #14 tablet 11/06/18 Unknown Rx predniSONE [Deltasone] 20 mg PO QDAY #3 tab 11/06/18 Unknown Rx Clindamycin [Clindamycin CAP] 300 mg PO Q8H #30 cap 02/20/19 Unknown Rx ED Physical Exam - General General appearance: alert, in no apparent distress - Head Head exam: Present: atraumatic, normocephalic - Eye Eye exam: Present: normal appearance - Expanded ENT Exam Expanded Teeth exam: Present: fractured tooth # (18), dental tenderness # (18), gingival enlargement - Neck Neck exam: Present: normal inspection, full ROM. Absent: lymphadenopathy - Neurological Exam Neurological exam: Present: alert, oriented X3 - Psychiatric Psychiatric exam: Present: normal affect, normal mood - Skin Skin exam: Present: warm, dry, intact, normal color. Absent: rash ED Medical Decision Making - Medical Decision Making 33 y/o female comes in for left tooth pain times 2 days. Has been taking IB. No fever. allergy to tramadol. Week ago chipped her tooth 1 week ago. clindamycin 300 mg bid Critical care attestation.: If time is entered above; I have spent that time in minutes in the direct care of this critically ill patient, excluding procedure time. ED Disposition Clinical Impression: Dental abscess Disposition: DC- TO HOME OR SELFCARE Is pt being admited?: No Does the pt Need Aspirin: No Condition: Stable Instructions: Dental Abscess (ED) Prescriptions: Clindamycin [Clindamycin CAP] 300 mg PO Q8H #30 cap Referrals: [facility] [Outside] - 3-5 Days [facility] [Outside] - 3-5 Days
== END 2019-02-20 09:22 | disposition home or self-care (01) ==
LOC: ED 08:53
DX: K04.7 Periapical abscess without sinus (principal); F17.200 Nicotine dependence, unspecified, uncomplicated; Z79.899 Other long term (current) drug therapy; Z88.6 Allergy status to analgesic agent
CPT/HCPCS: 99282